=== PATIENT | male | born 1955 | race Caucasian/White ===

== ENCOUNTER 2020-06-08 09:30 | Inpatient (IN) | payer MEDICARE, MEDICAID, OTHER ==
[2020-06-13] MEDS ORDERED: Protamine Sulfate 50 MG/5 ML VIAL ONE ×2 (10:03→10:57)
[2020-06-13] MEDS ORDERED: Heparin 5,000 UNITS/ML VIAL ONE ×2 (10:03→10:57)
[2020-06-13] MEDS ORDERED: Fentanyl 250 MCG/5 ML VIAL ONE (10:52)
[2020-06-13] MEDS ORDERED: Glycopyrrolate 0.2 MG/ML 5 ML SYRINGE ONE (10:57)
[2020-06-13] MEDS ORDERED: Rocuronium Bromide 10 MG/ML (10ML VIAL) ONE (10:57)
[2020-06-13] MEDS ORDERED: EPHEDRINE 25 MG/5 ML SYRINGE ONE (10:57)
[2020-06-13] MEDS ORDERED: PROPOFOL 200 MG/20 ML VIAL ONE (10:57)
[2020-06-13] MEDS ORDERED: Bupivacaine HCl 0.5%/Epinephrine 1:200,000/PF 30 ml Vial ONE (11:53)
[2020-06-13] MEDS ORDERED: hydrALAZINE 20 MG/ML VIAL SLOW IVP PRN (12:15)
[2020-06-13] MEDS ORDERED: Bisacodyl 10 MG SUPP PR PRN (12:15)
[2020-06-13] MEDS ORDERED: Phenylephrine 10 MG/NS 250 ML 250 ML IVPB PRN (12:15)
[2020-06-13] MEDS ORDERED: Fentanyl 100 MCG/2 ML VIAL SLOW IVP PRN (12:15)
[2020-06-13] MEDS ORDERED: Ondansetron PF 4 MG/2 ML Vial IVP PRN (12:15)
[2020-06-13] MEDS ORDERED: Acetaminophen 325 MG TAB PO PRN (12:15)
--- NOTE | 2020-06-13 12:38 | OP ---
DATE OF PROCEDURE: 06/13/2020 PREOPERATIVE DIAGNOSIS: Symptomatic right carotid stenosis. POSTOPERATIVE DIAGNOSIS: Symptomatic right carotid stenosis. PROCEDURES PERFORMED: 1. Ultrasound-guided right femoral vein access and interrogation of the right carotid system. 2. Right TCAR with a 9 x 40 Enroute stent. SURGEON: Deangelo Banegas MD TUB ATTENDANT: Jg Noonan MD ANESTHESIA: General endotracheal, Dr. Anastasia Purdy MD ESTIMATED BLOOD LOSS: Minimal. CONTRAST: 14 mL. TOTAL FLUORO TIME: 3 minutes. DESCRIPTION OF PROCEDURE: After consent was obtained, the patient was brought to the operating room, placed in supine position on the operating table. Appropriate central line and monitors were placed and general endotracheal anesthesia was induced. Right neck and groins were prepped and draped in usual sterile fashion. Using ultrasound guidance, the right femoral vein was accessed and the femoral venous sheath placed. The right carotid system was interrogated with ultrasound. The carotid bifurcation marked. Transverse incision was made over the common carotid artery just above the clavicle. The sternocleidomastoid heads were split. Common carotid artery was controlled with vessel loop. The patient was given 5000 units of heparin. An ACT was checked and it was greater than 250. A 5-0 Prolene pursestring was placed in the common carotid artery. Micropuncture needle and wire were placed. A micropuncture sheath was placed at 3 cm. Hand-injected arteriogram was performed. Carotid bifurcation noted. The sheath was then exchanged for the Enroute sheath, which was secured with silk suture to the skin. Followup angiogram showed intraluminal location of the sheath. The bifurcation was marked. The common carotid artery was clamped. Retrograde flow through the arteriovenous loop was confirmed. The carotid bifurcation was crossed into the internal carotid artery distally with micro wire. A 5 x 20 balloon was selected and taken to 8 mmHg. A 9 x 40 Enroute stent was selected and deployed. This deployed nicely. Followup angiogram showed good result in 2 planes. The guidewire was removed. After a minute, carotid was unclamped. The AV loop was disconnected. Protamine was administered. The sheath was removed from the carotid artery and pursestring suture secured with good hemostasis. Wounds irrigated, infiltrated with Marcaine and closed in layers. Venous sheath was removed and manual pressure held for hemostasis. The patient tolerated the procedure well was transferred to the intensive care unit in stable condition. Job ID: [id number] [facility]
[2020-06-13] MEDS: Sodium Chloride 0.9% 1,000 ML IV SCH ×2 (15:28→21:25)
[2020-06-13] MEDS: Gabapentin 300 MG CAP PO SCH ×2 (16:11→21:24)
[2020-06-13] MEDS: CEFAZOLIN 2 GM in Premix Bag 1 BAG IVPB SCH (16:12)
[2020-06-13] MEDS ORDERED: Lisinopril 10 MG TAB PO SCH (17:30)
[2020-06-13] MEDS ORDERED: traMADol HCl 50 MG TAB PO SCH (21:00)
[2020-06-13] MEDS ORDERED: Donepezil HCl 10 MG TAB PO SCH (21:00)
[2020-06-13] MEDS ORDERED: Atorvastatin Calcium 40 MG TAB PO SCH (21:00)
[2020-06-13] MEDS ORDERED: Mirtazapine 15 MG TAB PO SCH (21:00)
[2020-06-13] MEDS ORDERED: Melatonin 3 MG TAB PO SCH (21:00)
[2020-06-13] MEDS: Metoprolol Tartrate 25 MG TAB PO SCH (21:24)
[2020-06-14] MEDS: CEFAZOLIN 2 GM in Premix Bag 1 BAG IVPB SCH ×2 (01:38→11:01)
[2020-06-14 04:14] VITALS: TEMP 97.6
[2020-06-14] MEDS ORDERED: Phenylephrine 40 MG in Sodium Chloride 0.9% 250 ML 250 ML IVPB PRN (05:45)
--- NOTE | 2020-06-14 07:37 | DIS ---
DATE OF ADMISSION: 06/13/2020 DATE OF DISCHARGE: 06/14/2020 DIAGNOSIS: Symptomatic right carotid stenosis. PROCEDURE PERFORMED: Right transcarotid artery revascularization. DESCRIPTION OF HOSPITAL STAY: Mr. Tovar was brought in for TCAR and has done well postoperatively. I debrided his heel eschar and placed a wet to dry dressing. The underlying tissue looked healthy He is being discharged today to follow up with me in 2 weeks. Job ID: [id number] [facility]
[2020-06-14] MEDS ORDERED: Clopidogrel Bisulfate 75 MG TAB PO SCH (09:00)
[2020-06-14] MEDS ORDERED: Multivitamin W/ Minerals 1 TAB PO SCH (09:00)
[2020-06-14] MEDS ORDERED: Lisinopril 10 MG TAB PO SCH (09:00)
[2020-06-14] MEDS ORDERED: Potassium Chloride 10 MEQ TAB PO SCH (09:00)
[2020-06-14] MEDS ORDERED: Aspirin Chewable 81 MG TAB PO SCH (09:00)
[2020-06-14] MEDS: Sodium Chloride 0.9% 1,000 ML IV SCH (10:39)
[2020-06-14] MEDS: Gabapentin 300 MG CAP PO SCH (10:59)
[2020-06-14 11:17] VITALS: BP 107/65
[2020-06-14] MEDS: Metoprolol Tartrate 25 MG TAB PO SCH (11:17)
--- NOTE | 2020-06-15 01:24 | CON ---
DATE OF CONSULTATION: 06/14/2020 HISTORY OF PRESENT ILLNESS: Mr. Tovar is a gentleman, who has undergone surgery for carotid stenosis. I was consulted because of his presence in the Critical Care Unit. He is marginally functional. He has undergone his surgery successfully. PAST MEDICAL HISTORY: Remarkable for; 1. COVID pneumonia which he has survived. 2. History of CVA. 3. History of dementia. 4. History of coronary artery disease. 5. History of lipid disorder. 6. History of hypertension. 7. History of reflux disease. 8. History of a left [id number] amputation. SOCIAL HISTORY: He is nonsmoker and nondrinker. He is bedbound. PHYSICAL EXAMINATION: GENERAL: He is mildly dysarthric. He is in no distress. VITAL SIGNS: Heart rate is in 60s. Blood pressure 105/53, respiratory rates in the teens, oximetry is 94%. NECK: His surgery sites on his right neck were nonerythematous. He had no lymphadenopathy in his neck. LUNGS: Clear. HEART: Regular rhythm. ABDOMEN: Soft. EXTREMITIES: Without edema. LABORATORY DATA: White count 11, hemoglobin 11.3, and platelets 339. Electrolytes are unremarkable. IMPRESSION: Status post transcarotid artery revascularization on the right that has been successful. He obviously has his residual cerebrovascular accident effects from his admission in April and March. He is stable from my standpoint. He is not having any issues with protecting his airway. This is a 50 min consult with greater than 50% of the time spent on the unit with coordination of care. Job ID: [id number] [facility]
== END 2020-06-14 16:27 | disposition home or self-care (01) | DRG 35 ==
LOC: SURG A 06-13 08:54 → CCU 06-13 15:21
PROVIDERS: ADMIT Thoracic Surgery (Cardiothoracic Vascular Surgery); ATTEND Thoracic Surgery (Cardiothoracic Vascular Surgery)
PROC: 037H3DZ Dilation of Right Common Carotid Artery with Intraluminal Device, Percutaneous Approach (ICD-10-PCS; principal; 2020-06-13)
DX: I65.21 Occlusion and stenosis of right carotid artery (principal); I69.951 Hemiplegia and hemiparesis following unspecified cerebrovascular disease affecting right dominant side; Z20.828 Contact with and (suspected) exposure to other viral communicable diseases; I70.234 Atherosclerosis of native arteries of right leg with ulceration of heel and midfoot; E78.5 Hyperlipidemia, unspecified; F03.90 Unspecified dementia, unspecified severity, without behavioral disturbance, psychotic disturbance, mood disturbance, and anxiety; I10 Essential (primary) hypertension; F17.210 Nicotine dependence, cigarettes, uncomplicated; M19.90 Unspecified osteoarthritis, unspecified site; F41.9 Anxiety disorder, unspecified; F32.9 Major depressive disorder, single episode, unspecified; K21.9 Gastro-esophageal reflux disease without esophagitis; Z79.899 Other long term (current) drug therapy; Z89.612 Acquired absence of left leg above knee
CPT/HCPCS: 76000; 94640; C1725; C1876; C1884; J0690; J1642; J1644; J2704; J2720; J3010; J7620

== ENCOUNTER 2020-11-18 12:09 | Inpatient (IN) | payer MEDICARE, MEDICAID ==
[2020-11-18 12:57] LABS: Mean Corpuscular HGB CONC 32.4 g/dL (32.0-36.0); Mean Corpuscular Hemoglobin 28.6 pg (27.0-31.0); Mean Corpuscular Volume 88.3 fL (78.0-98.0); Mean Platelet Volume 8.8 fL (7.4-10.4); Platelet Count 220 thou/uL (130-400); RBC Distribution Width 15.3 % (11.5-14.5); Red Blood Cell (RBC) Count 4.19 mill/uL (4.70-6.10); White Blood Cell (WBC) Count 18.5 thou/uL (4.8-10.8)
[2020-11-18 13:14] LABS: Band 20 % (5-11); Lymphocytes 4 % (21-51); MDiff Complete? YES; Monocytes 8 % (0-10); Neutrophil 67 % (42-75); Platelet Morphology Comment Appears Adequate; Polychromasia SLIGHT = 2-3 cells (100X) (0-2/hpf); Reactive Lymphocytes 1 % (0-10)
[2020-11-18 13:20] LABS: ALT (SGPT) 11 U/L (8-55); AST (SGOT) 18 U/L (5-34); Albumin 3.4 g/dL (3.4-4.8); Alkaline Phosphatase 83 U/L (40-110); Anion Gap 18 mmol/L (10-20); BUN (Urea Nitrogen) 56 mg/dL (8.4-25.7); Bilirubin, Total 0.8 mg/dL (0.2-1.2); Calc. Creatinine Clearance 0 mL/min (70-130); Calcium 8.4 mg/dL (7.8-10.44); Carbon Dioxide 18 mmol/L (23-31); Chloride 111 mmol/L (98-107); Glucose 114 mg/dL (80-115); Potassium 4.1 mmol/L (3.5-5.1); Protein, Total 7.4 g/dL (5.8-8.1); Sodium 143 mmol/L (136-145)
[2020-11-18 13:42] LABS: CKMB 1.3 ng/mL (0-6.6)
[2020-11-18] MEDS ORDERED: Cefepime 2 GM VIAL ONE (14:24)
[2020-11-18] MEDS ORDERED: Vancomycin 1.5 GRAM/300 ML BAG 1.5 GM in Premix Bag 1 BAG IVPB SCH (14:45)
[2020-11-18] MEDS ORDERED: Acetaminophen 325 MG/10.15 ML UDCUP PO PRN (15:10)
[2020-11-18 15:34] LABS: SARS-CoV-2 NAA Rapid Test Not Detected (NotDetected)
[2020-11-18 16:51] LABS: Troponin I 0.036 ng/mL (< 0.028)
[2020-11-18] MEDS: Lactated Ringer's 1,000 ML IV SCH (18:47)
[2020-11-18 19:19] LABS: Troponin I 0.035 ng/mL (< 0.028)
[2020-11-18] MEDS: Heparin 5,000 UNITS/ML VIAL SC SCH ×2 (19:19→21:54)
[2020-11-18] MEDS ORDERED: Gabapentin 300 MG CAP PO SCH (21:00)
[2020-11-18] MEDS: Atorvastatin Calcium 40 MG TAB PO SCH (21:53)
[2020-11-18] MEDS: Mirtazapine 30 MG TAB PO SCH (21:53)
[2020-11-18] MEDS: Donepezil HCl 10 MG TAB PO SCH (21:54)
[2020-11-18] MEDS: Gabapentin 100 MG CAP PO SCH (21:54)
[2020-11-18] MEDS: Melatonin 3 MG TAB PO SCH (21:54)
[2020-11-19] MEDS: Lactated Ringer's 1,000 ML IV SCH ×3 (01:21→19:34)
[2020-11-19 01:42] LABS: Bacteria/HPF None Seen HPF (None Seen); Bilirubin Negative (Negative); Blood, Urine 2+ (Negative); Clarity Extra Turbid (Clear); Glucose, Urine (Dipstick) Normal (Negative); Ketone, Urine Negative (Negative); Leukocyte 500 Leu/uL (Negative); Nitrite Negative (Negative); Protein, Urine (Dipstick) 70 mg/dL (Neg-Trace); RBC/HPF 21-50 HPF (0-3); Specific Gravity, Urine 1.018 (1.002-1.036); Urobilinogen Normal mg/dL (Less than 2); WBC/HPF Greater than 50 HPF (0-3); pH, Urine 6.5 (5.0-9.0)
[2020-11-19 01:43] LABS: Legionella Urinary Ag Negative (Negative); Strep pneumo Urine Ag NEGATIVE (NEGATIVE)
[2020-11-19 01:44] LABS: Urine Culture Reflex No No
[2020-11-19 02:28] LABS: Creatinine, Urine 72.5 mg/dL (63-166)
[2020-11-19 04:18] LABS: #Basophils 0.1 thou/uL (0.0-0.2); #Lymphocytes 1.4 thou/uL (1.20-3.40); #Monocytes 0.9 thou/uL (0.11-0.59); #Neutrophils 7.8 thou/uL (1.40-6.50); %Basophils 0.5 % (0.0-1.0); %Eosinophils 0.5 % (0.0-10.0); %Lymphocytes 13.6 % (21.0-51.0); %Monocytes 8.7 % (0.0-10.0); %Neutrophils 76.8 % (42.0-75.0); Hemoglobin 9.1 g/dL (14.0-18.0); Mean Corpuscular HGB CONC 32.2 g/dL (32.0-36.0); Mean Corpuscular Hemoglobin 28.7 pg (27.0-31.0); Mean Corpuscular Volume 89.3 fL (78.0-98.0); Mean Platelet Volume 8.8 fL (7.4-10.4); Platelet Count 162 thou/uL (130-400); RBC Distribution Width 15.2 % (11.5-14.5); Red Blood Cell (RBC) Count 3.16 mill/uL (4.70-6.10); White Blood Cell (WBC) Count 10.1 thou/uL (4.8-10.8)
[2020-11-19 04:40] LABS: Anion Gap 16 mmol/L (10-20); BUN (Urea Nitrogen) 51 mg/dL (8.4-25.7); Calc. Creatinine Clearance 28 mL/min (70-130); Carbon Dioxide 14 mmol/L (23-31); Chloride 114 mmol/L (98-107); Glucose 84 mg/dL (80-115); Potassium 3.9 mmol/L (3.5-5.1); Sodium 140 mmol/L (136-145)
[2020-11-19] MEDS: Saccharomyces boulardii 250 MG CAP PO SCH (09:47)
[2020-11-19] MEDS: Heparin 5,000 UNITS/ML VIAL SC SCH ×3 (09:47→21:16)
[2020-11-19] MEDS: Clopidogrel Bisulfate 75 MG TAB PO SCH (09:47)
[2020-11-19] MEDS: Multivitamin W/ Minerals 1 TAB PO SCH (09:47)
[2020-11-19] MEDS: Gabapentin 100 MG CAP PO SCH ×3 (09:47→21:15)
[2020-11-19] MEDS: Aspirin Chewable 81 MG TAB PO SCH (09:47)
[2020-11-19] MEDS: Cefepime 2 GM in Sodium Chloride 0.9% 100 ML IVPB SCH (13:22)
[2020-11-19] MEDS ORDERED: Vancomycin 1 GM in Premix Bag 1 BAG IVPB SCH ×2 (15:00→18:00)
[2020-11-19 16:33] LABS: Vancomycin, Random 12.3 ug/mL (See Comment)
[2020-11-19] MEDS: Melatonin 3 MG TAB PO SCH (21:14)
[2020-11-19] MEDS: Mirtazapine 30 MG TAB PO SCH (21:15)
[2020-11-19] MEDS: Donepezil HCl 10 MG TAB PO SCH (21:15)
[2020-11-19] MEDS: Atorvastatin Calcium 40 MG TAB PO SCH (21:16)
[2020-11-20] MEDS: Lactated Ringer's 1,000 ML IV SCH ×3 (04:54→22:32)
[2020-11-20] MEDS: Acetaminophen 325 MG TAB PO PRN (08:32)
[2020-11-20] MEDS: Heparin 5,000 UNITS/ML VIAL SC SCH ×3 (08:33→21:57)
[2020-11-20] MEDS: Aspirin Chewable 81 MG TAB PO SCH (08:34)
[2020-11-20] MEDS: Multivitamin W/ Minerals 1 TAB PO SCH (08:34)
[2020-11-20] MEDS: Clopidogrel Bisulfate 75 MG TAB PO SCH (08:34)
[2020-11-20] MEDS: Gabapentin 100 MG CAP PO SCH ×3 (08:34→21:56)
[2020-11-20] MEDS: Saccharomyces boulardii 250 MG CAP PO SCH (08:35)
[2020-11-20] MEDS ORDERED: Iopamidol-370 76% 500 ML 1 ML ONE (09:39)
[2020-11-20 12:27] LABS: #Eosinphils 0.1 thou/uL (0.0-0.7); #Lymphocytes 0.5 thou/uL (1.20-3.40); #Monocytes 0.6 thou/uL (0.11-0.59); #Neutrophils 6.3 thou/uL (1.40-6.50); %Basophils 0.1 % (0.0-1.0); %Eosinophils 1.2 % (0.0-10.0); %Lymphocytes 6.6 % (21.0-51.0); %Monocytes 7.5 % (0.0-10.0); %Neutrophils 84.6 % (42.0-75.0); Hemoglobin 9.2 g/dL (14.0-18.0); Mean Corpuscular HGB CONC 33.8 g/dL (32.0-36.0); Mean Corpuscular Hemoglobin 29.5 pg (27.0-31.0); Mean Corpuscular Volume 87.2 fL (78.0-98.0); Mean Platelet Volume 8.8 fL (7.4-10.4); Platelet Count 150 thou/uL (130-400); RBC Distribution Width 14.8 % (11.5-14.5); Red Blood Cell (RBC) Count 3.12 mill/uL (4.70-6.10); White Blood Cell (WBC) Count 7.4 thou/uL (4.8-10.8)
[2020-11-20 12:48] LABS: Anion Gap 11 mmol/L (10-20); BUN (Urea Nitrogen) 38 mg/dL (8.4-25.7); Calc. Creatinine Clearance 31 mL/min (70-130); Calcium 8.1 mg/dL (7.8-10.44); Carbon Dioxide 19 mmol/L (23-31); Chloride 112 mmol/L (98-107); Glucose 122 mg/dL (80-115); Magnesium 1.9 mg/dL (1.6-2.6); Potassium 3.4 mmol/L (3.5-5.1); Sodium 139 mmol/L (136-145)
[2020-11-20] MEDS: Cefepime 2 GM in Sodium Chloride 0.9% 100 ML IVPB SCH (14:31)
[2020-11-20] MEDS ORDERED: Potassium Chloride 20 MEQ TAB PO SCH (16:45)
[2020-11-20 16:57] LABS: Base Excess (BEa) -7.2 mEq/L (-2.0 to +3.0); CO2 Tension 25.9 mmHg (35.0-45.0); Calcium, Ionized (arterial) 1.19 mmol/L (1.12-1.30); Carboxyhemoglobin (COHb) 0.2 gm% (0.0-3.0); O2 Tension (PaO2), arterial 52.6 mmHg (> 80.0); Potassium - ABG Lab 3.73 mmol/L (3.70-5.30); pH, Arterial 7.41 (7.35-7.45)
[2020-11-20 16:58] LABS: ALV-art Gradient 171.705 mmHg (0-20); Puncture Site RRA
[2020-11-20] MEDS ORDERED: Acetaminophen 650 MG Suppository PR SCH (17:15)
[2020-11-20 17:33] LABS: Troponin I 0.054 ng/mL (< 0.028)
[2020-11-20] MEDS ORDERED: Propofol 1,000 MG/100 ML VIAL IV ONE (18:07)
[2020-11-20] MEDS ORDERED: DISCONTINUE PREVIOUS NARCOTIC PAIN MEDICATIONS AND BENZODIAZEPINES FS SCH (18:15)
[2020-11-20] MEDS ORDERED: Fentanyl BOLUS 250 ML IVPB PRN (18:15)
[2020-11-20] MEDS ORDERED: Propofol BOLUS 1,000 MG/100 ML VIAL IV PRN (18:15)
[2020-11-20] MEDS ORDERED: Fentanyl CADD 100 ML ONE (18:25)
[2020-11-20 18:35] LABS: Actual Bicarbonate (HCO3a) 16.5 mEq/L (22-28); Base Excess (BEa) -8.3 mEq/L (-2.0 to +3.0); CO2 Tension 31.4 mmHg (35.0-45.0); Calcium, Ionized (arterial) 1.16 mmol/L (1.12-1.30); Carboxyhemoglobin (COHb) 0.3 gm% (0.0-3.0); Hemoglobin (Hb) 10.1 g/dL (14.0-18.0); O2 Tension (PaO2), arterial 105.8 mmHg (> 80.0); Potassium - ABG Lab 3.57 mmol/L (3.70-5.30); pH, Arterial 7.34 (7.35-7.45)
[2020-11-20 18:39] LABS: Puncture Site RBA
[2020-11-20 19:01] LABS: Vancomycin, Random 17.5 ug/mL (See Comment)
[2020-11-20] MEDS ORDERED: Norepinephrine 8 MG/0.9% NS 250 ML ONE (19:16)
[2020-11-20] MEDS: Atorvastatin Calcium 40 MG TAB PO SCH (21:56)
[2020-11-20] MEDS: Melatonin 3 MG TAB PO SCH (21:57)
[2020-11-20] MEDS: Donepezil HCl 10 MG TAB PO SCH (21:57)
[2020-11-20] MEDS: Vancomycin 1 GM in Premix Bag 1 BAG IVPB SCH (22:30)
[2020-11-20] MEDS: Mirtazapine 30 MG TAB PO SCH (22:33)
[2020-11-21] MEDS ORDERED: Norepinephrine 8 MG/0.9% NS 250 ML IVPB SCH (00:15)
[2020-11-21 04:10] LABS: SARS-CoV-2 PCR by NAA Not Detected (NotDetected)
[2020-11-21 07:48] LABS: #Eosinphils 0.1 thou/uL (0.0-0.7); #Lymphocytes 1.4 thou/uL (1.20-3.40); #Monocytes 1.6 thou/uL (0.11-0.59); #Neutrophils 13.8 thou/uL (1.40-6.50); %Eosinophils 0.3 % (0.0-10.0); %Lymphocytes 8.4 % (21.0-51.0); %Monocytes 9.5 % (0.0-10.0); %Neutrophils 81.8 % (42.0-75.0); Hemoglobin 8.6 g/dL (14.0-18.0); Mean Corpuscular HGB CONC 30.8 g/dL (32.0-36.0); Mean Corpuscular Hemoglobin 27.5 pg (27.0-31.0); Mean Corpuscular Volume 89.1 fL (78.0-98.0); Mean Platelet Volume 9.4 fL (7.4-10.4); Platelet Count 187 thou/uL (130-400); RBC Distribution Width 15.2 % (11.5-14.5); Red Blood Cell (RBC) Count 3.14 mill/uL (4.70-6.10); White Blood Cell (WBC) Count 16.9 thou/uL (4.8-10.8)
[2020-11-21 07:55] LABS: ALT (SGPT) 21 U/L (8-55); AST (SGOT) 33 U/L (5-34); Albumin 2.5 g/dL (3.4-4.8); Alkaline Phosphatase 80 U/L (40-110); Anion Gap 12 mmol/L (10-20); BUN (Urea Nitrogen) 36 mg/dL (8.4-25.7); Bilirubin, Total 0.4 mg/dL (0.2-1.2); Calc. Creatinine Clearance 30 mL/min (70-130); Calcium 7.8 mg/dL (7.8-10.44); Carbon Dioxide 17 mmol/L (23-31); Chloride 115 mmol/L (98-107); Globulin 3.4 g/dL (2.4-3.5); Glucose 106 mg/dL (80-115); Potassium 4.2 mmol/L (3.5-5.1); Protein, Total 5.9 g/dL (5.8-8.1); Sodium 140 mmol/L (136-145)
[2020-11-21 08:45] LABS: Band 28 % (5-11); Hypochromia SLIGHT = 6-15 cells (100X) (0-5/hpf); Lymphocytes 13 % (21-51); MDiff Complete? YES; Monocytes 8 % (0-10); Neutrophil 51 % (42-75); Platelet Morphology Comment Appears Adequate; Polychromasia SLIGHT = 2-3 cells (100X) (0-2/hpf)
[2020-11-21] MEDS: Lactated Ringer's 1,000 ML IV SCH ×2 (09:08→16:55)
[2020-11-21] MEDS: Saccharomyces boulardii 250 MG CAP PO SCH (09:09)
[2020-11-21] MEDS: Multivitamin W/ Minerals 1 TAB PO SCH (09:09)
[2020-11-21] MEDS: Aspirin Chewable 81 MG TAB PER TUBE SCH (09:09)
[2020-11-21] MEDS: Clopidogrel Bisulfate 75 MG TAB PO SCH (09:10)
[2020-11-21] MEDS: Pantoprazole 40 MG VIAL IVP SCH (09:10)
[2020-11-21] MEDS: Divalproex Sodium 125 mg Sprinkle Capsule PER TUBE SCH ×2 (09:10→20:18)
[2020-11-21] MEDS: Heparin 5,000 UNITS/ML VIAL SC SCH ×3 (09:10→20:20)
[2020-11-21] MEDS ORDERED: Lactated Ringer's 1,000 ML IV SCH (10:45)
[2020-11-21] MEDS: Cefepime 2 GM in Sodium Chloride 0.9% 100 ML IVPB SCH (13:43)
[2020-11-21] MEDS: Lorazepam 2 MG/ML VIAL SLOW IVP PRN (16:07)
[2020-11-21] MEDS: Propofol 1,000 MG/100 ML VIAL IV PRN (16:23)
[2020-11-21] MEDS: Atorvastatin Calcium 40 MG TAB PER TUBE SCH (20:17)
[2020-11-21] MEDS: Donepezil HCl 10 MG TAB PER TUBE SCH (20:18)
[2020-11-21] MEDS ORDERED: Mirtazapine 15 MG TAB PO SCH (21:00)
[2020-11-21] MEDS ORDERED: Fentanyl CADD 100 ML ONE (23:56)
[2020-11-22] MEDS: Lactated Ringer's 1,000 ML IV SCH (01:12)
[2020-11-22] MEDS: Lorazepam 2 MG/ML VIAL SLOW IVP PRN (02:11)
[2020-11-22 04:44] LABS: ALT (SGPT) 14 U/L (8-55); AST (SGOT) 20 U/L (5-34); Albumin 2.1 g/dL (3.4-4.8); Alkaline Phosphatase 74 U/L (40-110); Anion Gap 9 mmol/L (10-20); BUN (Urea Nitrogen) 34 mg/dL (8.4-25.7); Bilirubin, Total 0.2 mg/dL (0.2-1.2); Calc. Creatinine Clearance 35 mL/min (70-130); Calcium 7.8 mg/dL (7.8-10.44); Carbon Dioxide 21 mmol/L (23-31); Chloride 114 mmol/L (98-107); Globulin 3.1 g/dL (2.4-3.5); Glucose 79 mg/dL (80-115); Potassium 3.6 mmol/L (3.5-5.1); Protein, Total 5.2 g/dL (5.8-8.1); Sodium 140 mmol/L (136-145)
[2020-11-22 04:48] LABS: #Eosinphils 0.2 thou/uL (0.0-0.7); #Lymphocytes 0.7 thou/uL (1.20-3.40); #Monocytes 0.6 thou/uL (0.11-0.59); #Neutrophils 5.3 thou/uL (1.40-6.50); %Eosinophils 2.5 % (0.0-10.0); %Lymphocytes 10.5 % (21.0-51.0); %Monocytes 8.6 % (0.0-10.0); %Neutrophils 78.3 % (42.0-75.0); Hemoglobin 7.7 g/dL (14.0-18.0); Mean Corpuscular HGB CONC 32.5 g/dL (32.0-36.0); Mean Corpuscular Hemoglobin 29.1 pg (27.0-31.0); Mean Corpuscular Volume 89.7 fL (78.0-98.0); Mean Platelet Volume 9.5 fL (7.4-10.4); Platelet Count 120 thou/uL (130-400); RBC Distribution Width 15.1 % (11.5-14.5); Red Blood Cell (RBC) Count 2.65 mill/uL (4.70-6.10); White Blood Cell (WBC) Count 6.8 thou/uL (4.8-10.8)
[2020-11-22 07:02] LABS: Actual Bicarbonate (HCO3a) 18.7 mEq/L (22-28); Base Excess (BEa) -6.7 mEq/L (-2.0 to +3.0); CO2 Tension 37.2 mmHg (35.0-45.0); Calcium, Ionized (arterial) 1.24 mmol/L (1.12-1.30); Carboxyhemoglobin (COHb) 0.2 gm% (0.0-3.0); Hemoglobin (Hb) 8.6 g/dL (14.0-18.0); O2 Tension (PaO2), arterial 61.4 mmHg (> 80.0); Potassium - ABG Lab 3.76 mmol/L (3.70-5.30); pH, Arterial 7.32 (7.35-7.45)
[2020-11-22 07:03] LABS: Puncture Site RRA
[2020-11-22] MEDS: Aspirin Chewable 81 MG TAB PER TUBE SCH (09:36)
[2020-11-22] MEDS: Divalproex Sodium 125 mg Sprinkle Capsule PER TUBE SCH ×2 (09:36→20:05)
[2020-11-22] MEDS: Heparin 5,000 UNITS/ML VIAL SC SCH ×3 (09:36→20:05)
[2020-11-22] MEDS: Saccharomyces boulardii 250 MG CAP PO SCH (09:36)
[2020-11-22] MEDS: Clopidogrel Bisulfate 75 MG TAB PO SCH (09:36)
[2020-11-22] MEDS: Multivitamin W/ Minerals 1 TAB PO SCH (09:36)
[2020-11-22] MEDS: Pantoprazole 40 MG VIAL IVP SCH (09:37)
[2020-11-22] MEDS: Cefepime 2 GM in Sodium Chloride 0.9% 100 ML IVPB SCH (14:55)
[2020-11-22] MEDS: Propofol 1,000 MG/100 ML VIAL IV PRN ×2 (14:55→22:37)
[2020-11-22 16:02] LABS: INR-International Normal Ratio 1.2; PTT 40.7 sec (22.9-36.1); Prothrombin Time 15.1 sec (12.0-14.7)
[2020-11-22] MEDS ORDERED: Fentanyl CADD 100 ML ONE (20:00)
[2020-11-22] MEDS: Donepezil HCl 10 MG TAB PER TUBE SCH (20:05)
[2020-11-22] MEDS: Atorvastatin Calcium 40 MG TAB PER TUBE SCH (20:05)
[2020-11-22 22:13] LABS: Vancomycin, Trough 25.3 ug/mL
[2020-11-22] MEDS: Vancomycin 1 GM in Premix Bag 1 BAG IVPB SCH ×2 (22:31)
[2020-11-23 03:25] LABS: #Eosinphils 0.2 thou/uL (0.0-0.7); #Lymphocytes 0.9 thou/uL (1.20-3.40); #Monocytes 0.6 thou/uL (0.11-0.59); #Neutrophils 4.5 thou/uL (1.40-6.50); %Basophils 0.7 % (0.0-1.0); %Eosinophils 3.6 % (0.0-10.0); %Lymphocytes 14.8 % (21.0-51.0); %Monocytes 9.3 % (0.0-10.0); %Neutrophils 71.5 % (42.0-75.0); Hemoglobin 7.6 g/dL (14.0-18.0); Mean Corpuscular HGB CONC 32.2 g/dL (32.0-36.0); Mean Corpuscular Hemoglobin 28.9 pg (27.0-31.0); Mean Corpuscular Volume 89.6 fL (78.0-98.0); Mean Platelet Volume 9.5 fL (7.4-10.4); Platelet Count 117 thou/uL (130-400); RBC Distribution Width 15.2 % (11.5-14.5); Red Blood Cell (RBC) Count 2.63 mill/uL (4.70-6.10); White Blood Cell (WBC) Count 6.3 thou/uL (4.8-10.8)
[2020-11-23 03:57] LABS: ALT (SGPT) 19 U/L (8-55); AST (SGOT) 34 U/L (5-34); Albumin 2.1 g/dL (3.4-4.8); Alkaline Phosphatase 94 U/L (40-110); Anion Gap 10 mmol/L (10-20); BUN (Urea Nitrogen) 33 mg/dL (8.4-25.7); Bilirubin, Total 0.2 mg/dL (0.2-1.2); Calc. Creatinine Clearance 35 mL/min (70-130); Calcium 8.1 mg/dL (7.8-10.44); Carbon Dioxide 21 mmol/L (23-31); Chloride 117 mmol/L (98-107); Globulin 3.2 g/dL (2.4-3.5); Glucose 95 mg/dL (80-115); Potassium 3.7 mmol/L (3.5-5.1); Protein, Total 5.3 g/dL (5.8-8.1); Sodium 144 mmol/L (136-145)
[2020-11-23 08:42] LABS: Actual Bicarbonate (HCO3a) 20.2 mEq/L (22-28); Base Excess (BEa) -5.4 mEq/L (-2.0 to +3.0); CO2 Tension 39.6 mmHg (35.0-45.0); Calcium, Ionized (arterial) 1.24 mmol/L (1.12-1.30); Carboxyhemoglobin (COHb) 0.3 gm% (0.0-3.0); Hemoglobin (Hb) 8.3 g/dL (14.0-18.0); O2 Tension (PaO2), arterial 61.6 mmHg (> 80.0); Potassium - ABG Lab 3.77 mmol/L (3.70-5.30); pH, Arterial 7.33 (7.35-7.45)
[2020-11-23 08:43] LABS: Puncture Site LRA
[2020-11-23] MEDS: Propofol 1,000 MG/100 ML VIAL IV PRN ×2 (08:44→11:43)
[2020-11-23] MEDS: Divalproex Sodium 125 mg Sprinkle Capsule PER TUBE SCH ×2 (08:50→20:24)
[2020-11-23] MEDS: Multivitamin W/ Minerals 1 TAB PO SCH (08:50)
[2020-11-23] MEDS: Saccharomyces boulardii 250 MG CAP PO SCH (08:50)
[2020-11-23] MEDS: Aspirin Chewable 81 MG TAB PER TUBE SCH (08:50)
[2020-11-23] MEDS: Clopidogrel Bisulfate 75 MG TAB PO SCH (08:50)
[2020-11-23] MEDS: Heparin 5,000 UNITS/ML VIAL SC SCH ×3 (08:51→20:23)
[2020-11-23] MEDS: Pantoprazole 40 MG VIAL IVP SCH (08:51)
[2020-11-23] MEDS: Cefepime 2 GM in Sodium Chloride 0.9% 100 ML IVPB SCH (14:27)
[2020-11-23] MEDS: Atorvastatin Calcium 40 MG TAB PER TUBE SCH (20:24)
[2020-11-23] MEDS ORDERED: Vancomycin HCl 750 MG in Sodium Chloride 0.9% 250 ML 250 ML IVPB SCH (23:00)
[2020-11-24] MEDS: Propofol 1,000 MG/100 ML VIAL IV PRN ×3 (00:21→15:44)
[2020-11-24 04:57] LABS: #Eosinphils 0.5 thou/uL (0.0-0.7); #Lymphocytes 1.3 thou/uL (1.20-3.40); #Monocytes 0.7 thou/uL (0.11-0.59); %Basophils 0.2 % (0.0-1.0); %Eosinophils 5.6 % (0.0-10.0); %Lymphocytes 15.6 % (21.0-51.0); %Monocytes 8.7 % (0.0-10.0); %Neutrophils 69.9 % (42.0-75.0); Hemoglobin 5.1 g/dL (14.0-18.0); Mean Corpuscular HGB CONC 32.7 g/dL (32.0-36.0); Mean Corpuscular Hemoglobin 29.1 pg (27.0-31.0); Mean Platelet Volume 9.4 fL (7.4-10.4); Platelet Count 159 thou/uL (130-400); RBC Distribution Width 15.1 % (11.5-14.5); Red Blood Cell (RBC) Count 1.76 mill/uL (4.70-6.10); White Blood Cell (WBC) Count 8.5 thou/uL (4.8-10.8)
[2020-11-24 05:20] LABS: ALT (SGPT) 20 U/L (8-55); AST (SGOT) 32 U/L (5-34); Alkaline Phosphatase 109 U/L (40-110); Anion Gap 9 mmol/L (10-20); BUN (Urea Nitrogen) 31 mg/dL (8.4-25.7); Bilirubin, Total 0.2 mg/dL (0.2-1.2); Calc. Creatinine Clearance 31 mL/min (70-130); Calcium 8.1 mg/dL (7.8-10.44); Carbon Dioxide 22 mmol/L (23-31); Chloride 115 mmol/L (98-107); Globulin 3.4 g/dL (2.4-3.5); Glucose 101 mg/dL (80-115); Potassium 3.7 mmol/L (3.5-5.1); Protein, Total 5.4 g/dL (5.8-8.1); Sodium 142 mmol/L (136-145)
[2020-11-24 05:27] LABS: #Eosinphils 0.4 thou/uL (0.0-0.7); #Lymphocytes 1.1 thou/uL (1.20-3.40); #Monocytes 0.6 thou/uL (0.11-0.59); #Neutrophils 5.1 thou/uL (1.40-6.50); %Basophils 0.4 % (0.0-1.0); %Eosinophils 5.5 % (0.0-10.0); %Lymphocytes 14.8 % (21.0-51.0); %Monocytes 8.1 % (0.0-10.0); %Neutrophils 71.3 % (42.0-75.0); Hemoglobin 7.7 g/dL (14.0-18.0); Mean Corpuscular HGB CONC 32.2 g/dL (32.0-36.0); Mean Corpuscular Hemoglobin 28.5 pg (27.0-31.0); Mean Corpuscular Volume 88.5 fL (78.0-98.0); Mean Platelet Volume 9.6 fL (7.4-10.4); Platelet Count 136 thou/uL (130-400); RBC Distribution Width 15.2 % (11.5-14.5); Red Blood Cell (RBC) Count 2.69 mill/uL (4.70-6.10); White Blood Cell (WBC) Count 7.1 thou/uL (4.8-10.8)
[2020-11-24 07:29] LABS: ALV-art Gradient 307.175 mmHg (0-20); Base Excess (BEa) -4.7 mEq/L (-2.0 to +3.0); CO2 Tension 35.3 mmHg (35.0-45.0); Calcium, Ionized (arterial) 1.23 mmol/L (1.12-1.30); Carboxyhemoglobin (COHb) 1.1 gm% (0.0-3.0); Hemoglobin (Hb) 7.2 g/dL (14.0-18.0); O2 Tension (PaO2), arterial 76.5 mmHg (> 80.0); Potassium - ABG Lab 3.65 mmol/L (3.70-5.30); Puncture Site LRA; pH, Arterial 7.37 (7.35-7.45)
[2020-11-24] MEDS: Heparin 5,000 UNITS/ML VIAL SC SCH ×3 (10:18→22:01)
[2020-11-24] MEDS: Multivitamin W/ Minerals 1 TAB PO SCH (10:20)
[2020-11-24] MEDS: Saccharomyces boulardii 250 MG CAP PO SCH (10:20)
[2020-11-24] MEDS: Clopidogrel Bisulfate 75 MG TAB PO SCH (10:20)
[2020-11-24] MEDS: Aspirin Chewable 81 MG TAB PER TUBE SCH (10:20)
[2020-11-24] MEDS: Divalproex Sodium 125 mg Sprinkle Capsule PER TUBE SCH ×2 (10:20→22:01)
[2020-11-24] MEDS: Pantoprazole 40 MG VIAL IVP SCH (10:21)
[2020-11-24] MEDS: Cefepime 2 GM in Sodium Chloride 0.9% 100 ML IVPB SCH (15:44)
[2020-11-24] MEDS ORDERED: Fentanyl CADD 100 ML ONE (19:32)
[2020-11-24] MEDS: Atorvastatin Calcium 40 MG TAB PER TUBE SCH (22:01)
[2020-11-25 04:02] LABS: #Eosinphils 0.3 thou/uL (0.0-0.7); #Lymphocytes 1.2 thou/uL (1.20-3.40); #Monocytes 0.8 thou/uL (0.11-0.59); #Neutrophils 4.5 thou/uL (1.40-6.50); %Basophils 0.3 % (0.0-1.0); %Eosinophils 3.7 % (0.0-10.0); %Lymphocytes 17.6 % (21.0-51.0); %Monocytes 11.7 % (0.0-10.0); %Neutrophils 66.7 % (42.0-75.0); Hemoglobin 7.2 g/dL (14.0-18.0); Mean Corpuscular HGB CONC 33.1 g/dL (32.0-36.0); Mean Corpuscular Hemoglobin 29.1 pg (27.0-31.0); Mean Corpuscular Volume 87.9 fL (78.0-98.0); Mean Platelet Volume 9.5 fL (7.4-10.4); Platelet Count 131 thou/uL (130-400); RBC Distribution Width 15.2 % (11.5-14.5); Red Blood Cell (RBC) Count 2.49 mill/uL (4.70-6.10); White Blood Cell (WBC) Count 6.8 thou/uL (4.8-10.8)
[2020-11-25 04:19] LABS: ALT (SGPT) 19 U/L (8-55); AST (SGOT) 33 U/L (5-34); Albumin 2.1 g/dL (3.4-4.8); Alkaline Phosphatase 105 U/L (40-110); Anion Gap 10 mmol/L (10-20); BUN (Urea Nitrogen) 32 mg/dL (8.4-25.7); Bilirubin, Total 0.2 mg/dL (0.2-1.2); Calc. Creatinine Clearance 29 mL/min (70-130); Calcium 7.9 mg/dL (7.8-10.44); Carbon Dioxide 20 mmol/L (23-31); Chloride 113 mmol/L (98-107); Globulin 3.3 g/dL (2.4-3.5); Glucose 99 mg/dL (80-115); Potassium 3.9 mmol/L (3.5-5.1); Protein, Total 5.4 g/dL (5.8-8.1); Sodium 139 mmol/L (136-145)
[2020-11-25] MEDS: Propofol 1,000 MG/100 ML VIAL IV PRN ×2 (04:24→13:16)
[2020-11-25 07:06] LABS: Actual Bicarbonate (HCO3a) 19.8 mEq/L (22-28); Base Excess (BEa) -4.8 mEq/L (-2.0 to +3.0); CO2 Tension 34.5 mmHg (35.0-45.0); Calcium, Ionized (arterial) 1.22 mmol/L (1.12-1.30); Hemoglobin (Hb) 8.6 g/dL (14.0-18.0); O2 Tension (PaO2), arterial 64.5 mmHg (> 80.0); pH, Arterial 7.38 (7.35-7.45)
[2020-11-25 07:07] LABS: ALV-art Gradient 213.225 mmHg (0-20); Puncture Site RRA
[2020-11-25] MEDS: Divalproex Sodium 125 mg Sprinkle Capsule PER TUBE SCH ×2 (09:22→20:57)
[2020-11-25] MEDS: Aspirin Chewable 81 MG TAB PER TUBE SCH (09:22)
[2020-11-25] MEDS: Saccharomyces boulardii 250 MG CAP PO SCH (09:22)
[2020-11-25] MEDS: Heparin 5,000 UNITS/ML VIAL SC SCH ×3 (09:22→20:56)
[2020-11-25] MEDS: Clopidogrel Bisulfate 75 MG TAB PO SCH (09:22)
[2020-11-25] MEDS: Multivitamin W/ Minerals 1 TAB PO SCH (09:22)
[2020-11-25] MEDS: Pantoprazole 40 MG VIAL IVP SCH (09:23)
[2020-11-25] MEDS: Cefepime 2 GM in Sodium Chloride 0.9% 100 ML IVPB SCH (13:17)
[2020-11-25] MEDS: Lorazepam 2 MG/ML VIAL SLOW IVP PRN (15:14)
[2020-11-25] MEDS: Fentanyl CADD 100 ML IV SCH (19:05)
[2020-11-25] MEDS: Famotidine 20 MG TAB PO SCH (20:57)
[2020-11-25] MEDS: Atorvastatin Calcium 40 MG TAB PER TUBE SCH (20:57)
[2020-11-26] MEDS: Lorazepam 2 MG/ML VIAL SLOW IVP PRN ×3 (03:13→19:25)
[2020-11-26 03:41] LABS: #Eosinphils 0.1 thou/uL (0.0-0.7); #Lymphocytes 1.2 thou/uL (1.20-3.40); #Monocytes 1.1 thou/uL (0.11-0.59); #Neutrophils 7.3 thou/uL (1.40-6.50); %Basophils 0.1 % (0.0-1.0); %Eosinophils 1.5 % (0.0-10.0); %Lymphocytes 12.7 % (21.0-51.0); %Monocytes 11.1 % (0.0-10.0); %Neutrophils 74.7 % (42.0-75.0); Hemoglobin 8.6 g/dL (14.0-18.0); Mean Corpuscular HGB CONC 32.9 g/dL (32.0-36.0); Mean Corpuscular Hemoglobin 28.6 pg (27.0-31.0); Mean Corpuscular Volume 86.8 fL (78.0-98.0); Mean Platelet Volume 9.4 fL (7.4-10.4); Platelet Count 166 thou/uL (130-400); RBC Distribution Width 15.7 % (11.5-14.5); Red Blood Cell (RBC) Count 3.01 mill/uL (4.70-6.10); White Blood Cell (WBC) Count 9.8 thou/uL (4.8-10.8)
[2020-11-26 04:06] LABS: ALT (SGPT) 19 U/L (8-55); AST (SGOT) 31 U/L (5-34); Albumin 2.3 g/dL (3.4-4.8); Alkaline Phosphatase 101 U/L (40-110); Anion Gap 11 mmol/L (10-20); BUN (Urea Nitrogen) 33 mg/dL (8.4-25.7); Bilirubin, Total 0.3 mg/dL (0.2-1.2); Calc. Creatinine Clearance 29 mL/min (70-130); Carbon Dioxide 19 mmol/L (23-31); Chloride 114 mmol/L (98-107); Globulin 3.5 g/dL (2.4-3.5); Glucose 95 mg/dL (80-115); Potassium 4.4 mmol/L (3.5-5.1); Protein, Total 5.8 g/dL (5.8-8.1); Sodium 140 mmol/L (136-145)
[2020-11-26 07:33] LABS: Actual Bicarbonate (HCO3a) 18.9 mEq/L (22-28); Base Excess (BEa) -5.1 mEq/L (-2.0 to +3.0); CO2 Tension 31.2 mmHg (35.0-45.0); Carboxyhemoglobin (COHb) 0.6 gm% (0.0-3.0); Hemoglobin (Hb) 9.9 g/dL (14.0-18.0); Potassium - ABG Lab 4.14 mmol/L (3.70-5.30)
[2020-11-26 07:36] LABS: O2 Tension (PaO2), arterial 59.2 mmHg (> 80.0); Puncture Site RRA
[2020-11-26] MEDS: Divalproex Sodium 125 mg Sprinkle Capsule PER TUBE SCH ×2 (09:18→19:49)
[2020-11-26] MEDS: Saccharomyces boulardii 250 MG CAP PO SCH (09:19)
[2020-11-26] MEDS: Furosemide 20 MG/2 ML VIAL SLOW IVP SCH (09:19)
[2020-11-26] MEDS: Clopidogrel Bisulfate 75 MG TAB PO SCH (09:19)
[2020-11-26] MEDS: Multivitamin W/ Minerals 1 TAB PO SCH (09:19)
[2020-11-26] MEDS: Aspirin Chewable 81 MG TAB PER TUBE SCH (09:19)
[2020-11-26] MEDS: Heparin 5,000 UNITS/ML VIAL SC SCH ×3 (09:21→19:48)
[2020-11-26] MEDS ORDERED: Sodium Bicarbonate Tab 325 MG TAB PO SCH (12:45)
[2020-11-26] MEDS ORDERED: Fentanyl CADD 100 ML ONE (12:48)
[2020-11-26] MEDS ORDERED: Furosemide 40 MG/4 ML VIAL SLOW IVP SCH (13:00)
[2020-11-26] MEDS: Fentanyl CADD 100 ML IV SCH (13:41)
[2020-11-26] MEDS: Cefepime 2 GM in Sodium Chloride 0.9% 100 ML IVPB SCH (14:11)
[2020-11-26] MEDS: Famotidine 20 MG TAB PO SCH (19:47)
[2020-11-26] MEDS: Atorvastatin Calcium 40 MG TAB PER TUBE SCH (19:48)
[2020-11-26] MEDS: Sodium Bicarbonate Tab 325 MG TAB PO SCH (20:05)
[2020-11-26] MEDS: Acetaminophen 650 MG/20.3 ML UDCUP PO PRN (20:24)
[2020-11-27] MEDS: Lorazepam 2 MG/ML VIAL SLOW IVP PRN ×3 (00:05→19:52)
[2020-11-27 03:48] LABS: #Eosinphils 0.5 thou/uL (0.0-0.7); #Lymphocytes 1.7 thou/uL (1.20-3.40); #Monocytes 1.1 thou/uL (0.11-0.59); #Neutrophils 7.3 thou/uL (1.40-6.50); %Basophils 0.1 % (0.0-1.0); %Eosinophils 4.5 % (0.0-10.0); %Lymphocytes 15.6 % (21.0-51.0); %Monocytes 10.7 % (0.0-10.0); %Neutrophils 69.1 % (42.0-75.0); Hemoglobin 8.3 g/dL (14.0-18.0); Mean Corpuscular HGB CONC 32.3 g/dL (32.0-36.0); Mean Corpuscular Hemoglobin 28.1 pg (27.0-31.0); Mean Corpuscular Volume 87.2 fL (78.0-98.0); Mean Platelet Volume 8.7 fL (7.4-10.4); Platelet Count 190 thou/uL (130-400); RBC Distribution Width 15.9 % (11.5-14.5); Red Blood Cell (RBC) Count 2.94 mill/uL (4.70-6.10); White Blood Cell (WBC) Count 10.6 thou/uL (4.8-10.8)
[2020-11-27 04:10] LABS: ALT (SGPT) 15 U/L (8-55); AST (SGOT) 28 U/L (5-34); Albumin 2.3 g/dL (3.4-4.8); Alkaline Phosphatase 89 U/L (40-110); Anion Gap 9 mmol/L (10-20); BUN (Urea Nitrogen) 37 mg/dL (8.4-25.7); Bilirubin, Total 0.4 mg/dL (0.2-1.2); Calc. Creatinine Clearance 27 mL/min (70-130); Calcium 8.1 mg/dL (7.8-10.44); Carbon Dioxide 25 mmol/L (23-31); Chloride 112 mmol/L (98-107); Globulin 3.6 g/dL (2.4-3.5); Glucose 96 mg/dL (80-115); Potassium 4.3 mmol/L (3.5-5.1); Protein, Total 5.9 g/dL (5.8-8.1); Sodium 142 mmol/L (136-145)
[2020-11-27] MEDS: Fentanyl CADD 100 ML IV SCH ×2 (07:57→23:46)
[2020-11-27] MEDS: Furosemide 20 MG/2 ML VIAL SLOW IVP SCH (08:52)
[2020-11-27] MEDS: Heparin 5,000 UNITS/ML VIAL SC SCH ×3 (08:53→19:51)
[2020-11-27] MEDS: Clopidogrel Bisulfate 75 MG TAB PO SCH (08:53)
[2020-11-27] MEDS: Divalproex Sodium 125 mg Sprinkle Capsule PER TUBE SCH ×2 (08:53→19:51)
[2020-11-27] MEDS: Aspirin Chewable 81 MG TAB PER TUBE SCH (08:53)
[2020-11-27] MEDS: Multivitamin W/ Minerals 1 TAB PO SCH (08:53)
[2020-11-27] MEDS: Saccharomyces boulardii 250 MG CAP PO SCH (08:53)
[2020-11-27] MEDS: Sodium Bicarbonate Tab 325 MG TAB PO SCH ×2 (08:53→19:52)
[2020-11-27] MEDS: Cefepime 2 GM in Sodium Chloride 0.9% 100 ML IVPB SCH (14:54)
[2020-11-27] MEDS: Morphine 2 MG/ML VIAL SLOW IVP PRN ×2 (16:55→23:23)
[2020-11-27] MEDS: Atorvastatin Calcium 40 MG TAB PER TUBE SCH (19:51)
[2020-11-27] MEDS: Famotidine 20 MG TAB PO SCH (19:51)
[2020-11-27] MEDS ORDERED: Fentanyl CADD 100 ML ONE (23:41)
[2020-11-28] MEDS: Lorazepam 2 MG/ML VIAL SLOW IVP PRN ×3 (00:10→20:03)
[2020-11-28] MEDS: Acetaminophen 650 MG/20.3 ML UDCUP PO PRN (02:55)
[2020-11-28 04:09] LABS: ALT (SGPT) 18 U/L (8-55); AST (SGOT) 31 U/L (5-34); Albumin 2.3 g/dL (3.4-4.8); Alkaline Phosphatase 81 U/L (40-110); Anion Gap 14 mmol/L (10-20); BUN (Urea Nitrogen) 41 mg/dL (8.4-25.7); Bilirubin, Total 0.3 mg/dL (0.2-1.2); Calc. Creatinine Clearance 27 mL/min (70-130); Calcium 8.2 mg/dL (7.8-10.44); Carbon Dioxide 20 mmol/L (23-31); Chloride 109 mmol/L (98-107); Globulin 3.7 g/dL (2.4-3.5); Glucose 103 mg/dL (80-115); Potassium 4.4 mmol/L (3.5-5.1); Sodium 139 mmol/L (136-145)
[2020-11-28 04:35] LABS: Band 4 % (5-11); Hemoglobin 8.6 g/dL (14.0-18.0); Hypochromia SLIGHT = 6-15 cells (100X) (0-5/hpf); Lymphocytes 29 % (21-51); MDiff Complete? YES; Mean Corpuscular HGB CONC 32.7 g/dL (32.0-36.0); Mean Corpuscular Hemoglobin 28.5 pg (27.0-31.0); Mean Corpuscular Volume 87.2 fL (78.0-98.0); Mean Platelet Volume 8.3 fL (7.4-10.4); Monocytes 5 % (0-10); Neutrophil 62 % (42-75); Platelet Count 199 thou/uL (130-400); Platelet Morphology Comment Appears Adequate; Red Blood Cell (RBC) Count 3.01 mill/uL (4.70-6.10); White Blood Cell (WBC) Count 11.7 thou/uL (4.8-10.8)
[2020-11-28] MEDS: Sodium Bicarbonate Tab 325 MG TAB PO SCH ×2 (10:11→20:05)
[2020-11-28] MEDS: Clopidogrel Bisulfate 75 MG TAB PO SCH (10:11)
[2020-11-28] MEDS: Saccharomyces boulardii 250 MG CAP PO SCH (10:11)
[2020-11-28] MEDS: Aspirin Chewable 81 MG TAB PER TUBE SCH (10:11)
[2020-11-28] MEDS: Multivitamin W/ Minerals 1 TAB PO SCH (10:11)
[2020-11-28] MEDS: Heparin 5,000 UNITS/ML VIAL SC SCH ×3 (10:11→20:05)
[2020-11-28] MEDS: Divalproex Sodium 125 mg Sprinkle Capsule PER TUBE SCH ×2 (10:12→20:05)
[2020-11-28] MEDS: Furosemide 20 MG/2 ML VIAL SLOW IVP SCH (10:12)
[2020-11-28] MEDS ORDERED: Lactated Ringer's 1,000 ML IV SCH (12:30)
[2020-11-28] MEDS: Fentanyl CADD 100 ML IV SCH (15:32)
[2020-11-28] MEDS: Cefepime 2 GM in Sodium Chloride 0.9% 100 ML IVPB SCH (15:38)
[2020-11-28] MEDS: Metoclopramide HCl 10 MG/2 ML VIAL IVP PRN (17:08)
[2020-11-28] MEDS: Famotidine 20 MG TAB PO SCH (20:05)
[2020-11-28] MEDS: Atorvastatin Calcium 40 MG TAB PER TUBE SCH (20:05)
[2020-11-29] MEDS: Metoclopramide HCl 10 MG/2 ML VIAL IVP PRN (00:48)
[2020-11-29] MEDS: Lorazepam 2 MG/ML VIAL SLOW IVP PRN (03:12)
[2020-11-29 03:56] LABS: #Eosinphils 0.4 thou/uL (0.0-0.7); #Lymphocytes 2.1 thou/uL (1.20-3.40); #Monocytes 1.5 thou/uL (0.11-0.59); #Neutrophils 6.8 thou/uL (1.40-6.50); %Eosinophils 3.3 % (0.0-10.0); %Lymphocytes 19.3 % (21.0-51.0); %Monocytes 14.1 % (0.0-10.0); %Neutrophils 63.3 % (42.0-75.0); Hemoglobin 8.9 g/dL (14.0-18.0); Mean Corpuscular HGB CONC 32.1 g/dL (32.0-36.0); Mean Corpuscular Hemoglobin 28.2 pg (27.0-31.0); Mean Corpuscular Volume 87.9 fL (78.0-98.0); Mean Platelet Volume 8.5 fL (7.4-10.4); Platelet Count 197 thou/uL (130-400); Red Blood Cell (RBC) Count 3.15 mill/uL (4.70-6.10); White Blood Cell (WBC) Count 10.7 thou/uL (4.8-10.8)
[2020-11-29 04:18] LABS: ALT (SGPT) 16 U/L (8-55); AST (SGOT) 42 U/L (5-34); Albumin 2.2 g/dL (3.4-4.8); Alkaline Phosphatase 86 U/L (40-110); Anion Gap 15 mmol/L (10-20); BUN (Urea Nitrogen) 45 mg/dL (8.4-25.7); Bilirubin, Total 0.3 mg/dL (0.2-1.2); Calc. Creatinine Clearance 26 mL/min (70-130); Calcium 8.6 mg/dL (7.8-10.44); Carbon Dioxide 22 mmol/L (23-31); Chloride 107 mmol/L (98-107); Glucose 92 mg/dL (80-115); Potassium 4.4 mmol/L (3.5-5.1); Protein, Total 6.2 g/dL (5.8-8.1); Sodium 140 mmol/L (136-145)
[2020-11-29] MEDS ORDERED: Fentanyl CADD 100 ML ONE ×2 (05:21→16:28)
[2020-11-29] MEDS: Fentanyl CADD 100 ML IV SCH (05:23)
[2020-11-29] MEDS: Clopidogrel Bisulfate 75 MG TAB PO SCH (08:51)
[2020-11-29] MEDS: Multivitamin W/ Minerals 1 TAB PO SCH (08:56)
[2020-11-29] MEDS: Saccharomyces boulardii 250 MG CAP PO SCH (08:56)
[2020-11-29] MEDS: Aspirin Chewable 81 MG TAB PER TUBE SCH (08:56)
[2020-11-29] MEDS: Sodium Bicarbonate Tab 325 MG TAB PO SCH ×2 (08:56→20:51)
[2020-11-29] MEDS: Heparin 5,000 UNITS/ML VIAL SC SCH ×3 (08:56→20:51)
[2020-11-29] MEDS: Divalproex Sodium 125 mg Sprinkle Capsule PER TUBE SCH ×2 (08:56→20:50)
[2020-11-29] MEDS: Cefepime 2 GM in Sodium Chloride 0.9% 100 ML IVPB SCH (12:58)
[2020-11-29] MEDS: Haloperidol Lactate 5 MG/ML VIAL IM SCH ×3 (15:30→23:24)
[2020-11-29] MEDS: Atorvastatin Calcium 40 MG TAB PER TUBE SCH (20:50)
[2020-11-29] MEDS: Famotidine 20 MG TAB PO SCH (20:51)
[2020-11-30] MEDS: Acetaminophen 650 MG/20.3 ML UDCUP PO PRN ×2 (00:13→03:59)
[2020-11-30] MEDS: Haloperidol Lactate 5 MG/ML VIAL IM SCH ×6 (03:10→22:51)
[2020-11-30 03:47] LABS: #Eosinphils 0.2 thou/uL (0.0-0.7); #Lymphocytes 1.6 thou/uL (1.20-3.40); #Monocytes 1.5 thou/uL (0.11-0.59); #Neutrophils 9.4 thou/uL (1.40-6.50); %Basophils 0.3 % (0.0-1.0); %Eosinophils 1.4 % (0.0-10.0); %Lymphocytes 12.3 % (21.0-51.0); %Monocytes 11.7 % (0.0-10.0); %Neutrophils 74.3 % (42.0-75.0); Hemoglobin 8.6 g/dL (14.0-18.0); Mean Corpuscular HGB CONC 32.6 g/dL (32.0-36.0); Mean Corpuscular Hemoglobin 28.8 pg (27.0-31.0); Mean Corpuscular Volume 88.2 fL (78.0-98.0); Mean Platelet Volume 8.6 fL (7.4-10.4); Platelet Count 203 thou/uL (130-400); RBC Distribution Width 15.9 % (11.5-14.5); White Blood Cell (WBC) Count 12.7 thou/uL (4.8-10.8)
[2020-11-30] MEDS: Lorazepam 2 MG/ML VIAL SLOW IVP PRN (03:59)
[2020-11-30 04:05] LABS: ALT (SGPT) 16 U/L (8-55); AST (SGOT) 32 U/L (5-34); Albumin 2.4 g/dL (3.4-4.8); Alkaline Phosphatase 80 U/L (40-110); Anion Gap 14 mmol/L (10-20); BUN (Urea Nitrogen) 47 mg/dL (8.4-25.7); Bilirubin, Total 0.3 mg/dL (0.2-1.2); Calc. Creatinine Clearance 27 mL/min (70-130); Calcium 8.6 mg/dL (7.8-10.44); Carbon Dioxide 23 mmol/L (23-31); Chloride 108 mmol/L (98-107); Globulin 4.1 g/dL (2.4-3.5); Glucose 105 mg/dL (80-115); Potassium 4.6 mmol/L (3.5-5.1); Protein, Total 6.5 g/dL (5.8-8.1); Sodium 140 mmol/L (136-145)
[2020-11-30 04:25] LABS: Bacteria/HPF None Seen HPF (None Seen); Bilirubin Negative (Negative); Blood, Urine 3+ (Negative); Clarity Turbid (Clear); Glucose, Urine (Dipstick) Normal (Negative); Ketone, Urine Negative (Negative); Leukocyte 250 Leu/uL (Negative); Nitrite Negative (Negative); Protein, Urine (Dipstick) 100 mg/dL (Neg-Trace); RBC/HPF Greater than 50 HPF (0-3); Specific Gravity, Urine 1.016 (1.002-1.036); Squamous Epithelial 0-3 HPF (0-3); Urobilinogen Normal mg/dL (Less than 2); WBC/HPF Greater than 50 HPF (0-3); pH, Urine 7.5 (5.0-9.0)
[2020-11-30 04:28] LABS: Urine Culture Reflex Yes Yes
[2020-11-30 05:39] VITALS: BMI 21.0
[2020-11-30] MEDS: Sodium Bicarbonate Tab 325 MG TAB PO SCH ×2 (09:20→20:49)
[2020-11-30] MEDS: Saccharomyces boulardii 250 MG CAP PO SCH (09:20)
[2020-11-30] MEDS: Heparin 5,000 UNITS/ML VIAL SC SCH ×3 (09:21→20:35)
[2020-11-30] MEDS: Aspirin Chewable 81 MG TAB PER TUBE SCH (09:21)
[2020-11-30] MEDS: Clopidogrel Bisulfate 75 MG TAB PO SCH (09:21)
[2020-11-30] MEDS: Multivitamin W/ Minerals 1 TAB PO SCH (09:21)
[2020-11-30] MEDS: Divalproex Sodium 125 mg Sprinkle Capsule PER TUBE SCH ×2 (09:22→20:49)
[2020-11-30] MEDS: Acetaminophen 325 MG TAB PO PRN (09:26)
[2020-11-30] MEDS ORDERED: Fentanyl CADD 100 ML ONE (09:35)
[2020-11-30] MEDS: Fentanyl CADD 100 ML IV SCH (09:38)
[2020-11-30] MEDS: Cefepime 2 GM in Sodium Chloride 0.9% 100 ML IVPB SCH (13:07)
[2020-11-30] MEDS: Atorvastatin Calcium 40 MG TAB PER TUBE SCH (20:48)
[2020-11-30] MEDS: Famotidine 20 MG TAB PO SCH (20:49)
[2020-11-30] MEDS ORDERED: Valproate Sodium 500 MG in Sodium Chloride 0.9% 100 ML IVPB SCH (23:15)
[2020-12-01] MEDS: Haloperidol Lactate 5 MG/ML VIAL IM SCH ×3 (03:13→10:50)
[2020-12-01 04:25] LABS: #Eosinphils 0.3 thou/uL (0.0-0.7); #Lymphocytes 1.8 thou/uL (1.20-3.40); #Monocytes 1.4 thou/uL (0.11-0.59); #Neutrophils 9.7 thou/uL (1.40-6.50); %Basophils 0.3 % (0.0-1.0); %Eosinophils 2.3 % (0.0-10.0); %Lymphocytes 13.6 % (21.0-51.0); %Monocytes 10.2 % (0.0-10.0); %Neutrophils 73.6 % (42.0-75.0); Hemoglobin 8.9 g/dL (14.0-18.0); Mean Corpuscular Hemoglobin 28.1 pg (27.0-31.0); Mean Corpuscular Volume 87.8 fL (78.0-98.0); Mean Platelet Volume 8.7 fL (7.4-10.4); Platelet Count 238 thou/uL (130-400); Red Blood Cell (RBC) Count 3.19 mill/uL (4.70-6.10); White Blood Cell (WBC) Count 13.2 thou/uL (4.8-10.8)
[2020-12-01 04:52] LABS: ALT (SGPT) 14 U/L (8-55); AST (SGOT) 36 U/L (5-34); Albumin 2.5 g/dL (3.4-4.8); Alkaline Phosphatase 74 U/L (40-110); Anion Gap 14 mmol/L (10-20); BUN (Urea Nitrogen) 46 mg/dL (8.4-25.7); Bilirubin, Total 0.4 mg/dL (0.2-1.2); Calc. Creatinine Clearance 27 mL/min (70-130); Calcium 8.6 mg/dL (7.8-10.44); Carbon Dioxide 21 mmol/L (23-31); Chloride 110 mmol/L (98-107); Globulin 4.2 g/dL (2.4-3.5); Glucose 100 mg/dL (80-115); Potassium 4.4 mmol/L (3.5-5.1); Protein, Total 6.7 g/dL (5.8-8.1); Sodium 141 mmol/L (136-145)
[2020-12-01] MEDS: Heparin 5,000 UNITS/ML VIAL SC SCH ×3 (08:51→20:26)
[2020-12-01] MEDS: Aspirin Chewable 81 MG TAB PER TUBE SCH (08:57)
[2020-12-01] MEDS: Sodium Bicarbonate Tab 325 MG TAB PO SCH ×2 (08:58→19:53)
[2020-12-01] MEDS: Clopidogrel Bisulfate 75 MG TAB PO SCH (08:58)
[2020-12-01] MEDS: Multivitamin W/ Minerals 1 TAB PO SCH (08:58)
[2020-12-01] MEDS: Saccharomyces boulardii 250 MG CAP PO SCH (08:58)
[2020-12-01] MEDS ORDERED: Valproate Sodium 500 MG in Sodium Chloride 0.9% 100 ML IVPB SCH (09:00)
[2020-12-01] MEDS ORDERED: Haloperidol Lactate 5 MG/ML VIAL IM PRN (11:17)
[2020-12-01] MEDS: Cefepime 2 GM in Sodium Chloride 0.9% 100 ML IVPB SCH (12:56)
[2020-12-01] MEDS: Lorazepam 2 MG/ML VIAL SLOW IVP PRN ×2 (15:51→19:59)
[2020-12-01] MEDS: Lactated Ringer's 1,000 ML IV SCH (18:03)
[2020-12-01] MEDS: Atorvastatin Calcium 40 MG TAB PER TUBE SCH (19:52)
[2020-12-01] MEDS: Famotidine 20 MG TAB PO SCH (19:53)
[2020-12-02] MEDS: Lorazepam 2 MG/ML VIAL SLOW IVP PRN ×2 (00:20→08:44)
[2020-12-02] MEDS ORDERED: OLANZapine 10 MG VIAL IM SCH (02:30)
[2020-12-02] MEDS: Lactated Ringer's 1,000 ML IV SCH (02:50)
[2020-12-02 03:56] VITALS: TEMP 97.9
[2020-12-02] MEDS ORDERED: Furosemide 40 MG/4 ML VIAL ONE (04:57)
[2020-12-02] MEDS ORDERED: Furosemide 20 MG/2 ML VIAL SLOW IVP SCH (05:00)
[2020-12-02] MEDS ORDERED: Scopolamine 1.5 mg/72 hour Patch TD SCH (05:30)
[2020-12-02 05:35] VITALS: BP 139/83
[2020-12-02 06:39] LABS: #Eosinphils 0.2 thou/uL (0.0-0.7); #Lymphocytes 1.8 thou/uL (1.20-3.40); #Monocytes 1.1 thou/uL (0.11-0.59); #Neutrophils 9.3 thou/uL (1.40-6.50); %Basophils 0.4 % (0.0-1.0); %Eosinophils 1.4 % (0.0-10.0); %Lymphocytes 14.2 % (21.0-51.0); %Neutrophils 75.1 % (42.0-75.0); Mean Corpuscular HGB CONC 27.9 g/dL (32.0-36.0); Mean Corpuscular Hemoglobin 25.5 pg (27.0-31.0); Mean Corpuscular Volume 91.5 fL (78.0-98.0); Mean Platelet Volume 8.6 fL (7.4-10.4); Platelet Count 171 thou/uL (130-400); RBC Distribution Width 16.1 % (11.5-14.5); Red Blood Cell (RBC) Count 3.52 mill/uL (4.70-6.10); White Blood Cell (WBC) Count 12.4 thou/uL (4.8-10.8)
[2020-12-02 07:00] LABS: Albumin 2.4 g/dL (3.4-4.8)
[2020-12-02 07:01] LABS: Chloride 115 mmol/L (98-107); Sodium 143 mmol/L (136-145)
[2020-12-02 07:03] LABS: Globulin 5.1 g/dL (2.4-3.5); Glucose 79 mg/dL (80-115); Protein, Total 7.5 g/dL (5.8-8.1)
[2020-12-02 07:04] LABS: Bilirubin, Total 0.4 mg/dL (0.2-1.2); Carbon Dioxide 12 mmol/L (23-31)
[2020-12-02 07:05] LABS: Alkaline Phosphatase 81 U/L (40-110)
[2020-12-02 07:06] LABS: Calc. Creatinine Clearance 28 mL/min (70-130)
[2020-12-02 07:07] LABS: BUN (Urea Nitrogen) 45 mg/dL (8.4-25.7)
[2020-12-02 07:08] LABS: ALT (SGPT) 16 U/L (8-55); AST (SGOT) 56 U/L (5-34)
[2020-12-02 07:09] LABS: Anion Gap 21 mmol/L (10-20)
[2020-12-02] MEDS ORDERED: Lactated Ringer's 1,000 ML IV SCH (09:00)
[2020-12-02] MEDS ORDERED: Lorazepam 2 MG/ML VIAL SLOW IVP PRN ×2 (11:10)
[2020-12-02] MEDS ORDERED: Morphine 4 MG/ML VIAL SLOW IVP PRN (11:11)
[2020-12-02] MEDS: Aspirin Chewable 81 MG TAB PER TUBE SCH (17:00)
[2020-12-02] MEDS: Clopidogrel Bisulfate 75 MG TAB PO SCH (17:01)
[2020-12-02] MEDS: Heparin 5,000 UNITS/ML VIAL SC SCH ×2 (17:01→18:11)
[2020-12-02] MEDS: Multivitamin W/ Minerals 1 TAB PO SCH (17:02)
[2020-12-02] MEDS: Sodium Bicarbonate Tab 325 MG TAB PO SCH (17:03)
[2020-12-02] MEDS: Saccharomyces boulardii 250 MG CAP PO SCH (17:03)
== END 2020-12-02 21:05 | disposition hospice, inpatient (51) | DRG 870 ==
LOC: ERS 12:09 → 2NO 14:42 → CCU 11-20 17:22 → ONC 12-01 15:03
PROVIDERS: ADMIT Family Medicine; ATTEND Family Medicine
PROC: 5A1955Z Respiratory Ventilation, Greater than 96 Consecutive Hours (ICD-10-PCS; principal; 2020-11-20)
PROC: 06HY33Z Insertion of Infusion Device into Lower Vein, Percutaneous Approach (ICD-10-PCS; 2020-11-20)
PROC: 0BH17EZ Insertion of Endotracheal Airway into Trachea, Via Natural or Artificial Opening (ICD-10-PCS; 2020-11-20)
PROC: 30233N1 Transfusion of Nonautologous Red Blood Cells into Peripheral Vein, Percutaneous Approach (ICD-10-PCS; 2020-11-25)
DX: A41.9 Sepsis, unspecified organism (principal); J96.01 Acute respiratory failure with hypoxia; R65.21 Severe sepsis with septic shock; J69.0 Pneumonitis due to inhalation of food and vomit; E87.2 Acidosis; N17.9 Acute kidney failure, unspecified; E44.0 Moderate protein-calorie malnutrition; D68.8 Other specified coagulation defects; G93.49 Other encephalopathy; Z66 Do not resuscitate; Z51.5 Encounter for palliative care; Z20.822 Contact with and (suspected) exposure to COVID-19; Y95 Nosocomial condition; F01.50 Vascular dementia, unspecified severity, without behavioral disturbance, psychotic disturbance, mood disturbance, and anxiety; I25.10 Atherosclerotic heart disease of native coronary artery without angina pectoris; E78.5 Hyperlipidemia, unspecified; R77.8 Other specified abnormalities of plasma proteins; F03.90 Unspecified dementia, unspecified severity, without behavioral disturbance, psychotic disturbance, mood disturbance, and anxiety; K21.9 Gastro-esophageal reflux disease without esophagitis; E78.00 Pure hypercholesterolemia, unspecified; F32.9 Major depressive disorder, single episode, unspecified; L97.519 Non-pressure chronic ulcer of other part of right foot with unspecified severity; E11.621 Type 2 diabetes mellitus with foot ulcer; N18.9 Chronic kidney disease, unspecified; R91.8 Other nonspecific abnormal finding of lung field; I12.9 Hypertensive chronic kidney disease with stage 1 through stage 4 chronic kidney disease, or unspecified chronic kidney disease; D63.1 Anemia in chronic kidney disease; E11.22 Type 2 diabetes mellitus with diabetic chronic kidney disease; D69.6 Thrombocytopenia, unspecified; Z79.899 Other long term (current) drug therapy; Z79.82 Long term (current) use of aspirin; Z79.02 Long term (current) use of antithrombotics/antiplatelets; Z78.1 Physical restraint status; Z90.49 Acquired absence of other specified parts of digestive tract; Z86.73 Personal history of transient ischemic attack (TIA), and cerebral infarction without residual deficits; Z85.038 Personal history of other malignant neoplasm of large intestine; Z93.3 Colostomy status; Z68.20 Body mass index [BMI] 20.0-20.9, adult; Z89.612 Acquired absence of left leg above knee; Z74.01 Bed confinement status; Z87.891 Personal history of nicotine dependence
CPT/HCPCS: 0240U; 36415; 36416; 36430; 36600; 71045; 71275; 80048; 80053; 80202; 81001; 82306; 82553; 82570; 82805; 83605; 83735; 83880; 84145; 84484; 84540; 85025; 85379; 85610; 85730; 86850; 86900; 86901; 87040; 87077; 87086; 87449; 87635; 87899; 93005; 93010; 93306; 94002; 94003; 94640; 94660; 96365; 96366; 96367; C9113; J0692; J1630; J1644; J1940; J1956; J2060; J2270; J2358; J2704; J2765; J3010; J3370; J3490; J7620; P9016; Q9967; U0003; U0005

== ENCOUNTER 2020-12-02 21:10 | Inpatient (IN) | payer MEDICARE, MEDICAID ==
[2020-12-02] MEDS ORDERED: Lorazepam 2 MG/ML VIAL ONE (22:09)
[2020-12-02] MEDS ORDERED: Morphine 4 MG/ML VIAL ONE (22:09)
[2020-12-02] MEDS ORDERED: Bisacodyl 10 MG SUPP PR PRN (22:11)
[2020-12-02] MEDS ORDERED: Scopolamine 1.5 mg/72 hour Patch TOP PRN (22:15)
[2020-12-02] MEDS: Haloperidol Lactate 5 MG/ML VIAL SLOW IVP PRN (23:48)
[2020-12-03] MEDS: Morphine 4 MG/ML VIAL SLOW IVP PRN ×7 (01:50→21:46)
[2020-12-03] MEDS: Lorazepam 2 MG/ML VIAL SLOW IVP PRN ×6 (01:50→21:45)
[2020-12-03] MEDS: Haloperidol Lactate 5 MG/ML VIAL SLOW IVP PRN (10:57)
[2020-12-04] MEDS: Morphine 4 MG/ML VIAL SLOW IVP PRN ×4 (05:11→21:43)
[2020-12-04] MEDS: Lorazepam 2 MG/ML VIAL SLOW IVP PRN ×4 (05:11→21:43)
[2020-12-04] MEDS: Haloperidol Lactate 5 MG/ML VIAL SLOW IVP PRN ×2 (06:58→17:01)
[2020-12-05] MEDS: Lorazepam 2 MG/ML VIAL SLOW IVP PRN ×2 (02:41→06:22)
[2020-12-05] MEDS: Morphine 4 MG/ML VIAL SLOW IVP PRN ×5 (02:42→13:43)
[2020-12-05] MEDS: Morphine 2 MG/ML VIAL SLOW IVP PRN ×3 (03:25→21:05)
[2020-12-05] MEDS: Haloperidol Lactate 5 MG/ML VIAL SLOW IVP PRN ×2 (03:25→09:38)
[2020-12-05] MEDS: Acetaminophen 650 MG Suppository PR PRN ×2 (10:06→21:02)
[2020-12-06 08:10] VITALS: BP 124/75; TEMP 101.3
[2020-12-06] MEDS ORDERED: Morphine 10 MG/0.5 ML ORAL SYRINGE SL SCH ×2 (12:00→14:00)
[2020-12-06] MEDS ORDERED: Lorazepam 1 MG TAB PO SCH (13:00)
[2020-12-06] MEDS: Lorazepam 2 MG/ML VIAL SLOW IVP PRN (15:57)
== END 2020-12-06 16:25 | disposition hospice, inpatient (51) | DRG 951 ==
LOC: ONC 21:10
PROVIDERS: ADMIT Family Medicine; ATTEND Family Medicine
DX: Z51.5 Encounter for palliative care (principal); A41.9 Sepsis, unspecified organism; J96.01 Acute respiratory failure with hypoxia; J18.9 Pneumonia, unspecified organism; N17.9 Acute kidney failure, unspecified; Z66 Do not resuscitate; F03.90 Unspecified dementia, unspecified severity, without behavioral disturbance, psychotic disturbance, mood disturbance, and anxiety; Z87.891 Personal history of nicotine dependence; E78.5 Hyperlipidemia, unspecified; L89.899 Pressure ulcer of other site, unspecified stage; R77.8 Other specified abnormalities of plasma proteins; Z79.899 Other long term (current) drug therapy; Z79.02 Long term (current) use of antithrombotics/antiplatelets; Z89.612 Acquired absence of left leg above knee; Z90.49 Acquired absence of other specified parts of digestive tract; Z85.038 Personal history of other malignant neoplasm of large intestine; Z86.73 Personal history of transient ischemic attack (TIA), and cerebral infarction without residual deficits
CPT/HCPCS: J1630; J2060; J2270